=== PATIENT | male | born 1990 | race Caucasian/White ===

== ENCOUNTER 2021-01-19 23:25 | Emergency (ER) | payer SELFPAY ==
[~2021-01-19] VITALS: Ht 170.2 cm; Wt 97.5 kg
--- NOTE | 2021-01-19 23:25 | NUR ---
PT BIB [facility], PREBOOK. TAKEN TO CHAIR
[2021-01-19 23:26] VITALS: BP 154/87
[2021-01-19 23:36] VITALS: BP 154/87
--- NOTE | 2021-01-19 23:36 | NUR ---
Patient discharged with v/s stable. Written and verbal after care instructions given and explained. Patient verbalized understanding. Police with in custody. All questions addressed prior to discharge. Advised to follow up with [facility]D.
--- NOTE | 2021-01-19 23:36 | NUR ---
SEEN AND DISCHARGED BY MACARENA THOMAS. NO NURSING INTERVENTIONS NEEDED.
== END 2021-01-19 23:36 ==
LOC: MED 23:25
DX: Z02.89 Encounter for other administrative examinations (principal); V89.2XXA Person injured in unspecified motor-vehicle accident, traffic, initial encounter; Y93.89 Activity, other specified; Y92.89 Other specified places as the place of occurrence of the external cause; Y99.8 Other external cause status
CPT/HCPCS: 99283